=== PATIENT | female | born 1990 | race Two or more races ===

== ENCOUNTER 2025-04-03 13:41 | Emergency (ER) | payer SELFPAY ==
[~2025-04-03] VITALS: Ht 177.8 cm; Wt 102.1 kg
[2025-04-03] MEDS ORDERED: HYDROMORPHONE 1 MG/1 ML DISP.SYRIN ONE ×2 (15:32→17:12)
[2025-04-03] MEDS ORDERED: ONDANSETRON 4 MG/2 ML VIAL ONE ×2 (15:32→17:12)
[2025-04-03 15:36] LABS: PLATELET COUNT (AUTO) 220 K/uL (179-408); RED BLOOD CELL COUNT(AUTO) 4.24 MIL/uL (3.63-4.92); RED CELL DISTRIBUTION WIDTH 22.4 % (12.3-17.7); WHITE BLOOD COUNT (AUTO) 4.2 K/uL (3.8-11.8)
[2025-04-03] MEDS: IV NS 1000 ML 1,000 ML IV ONE (15:38)
[2025-04-03] MEDS: HYDROMORPHONE 1 MG/1 ML DISP.SYRIN IV ONE ×2 (15:39→17:16)
[2025-04-03] MEDS: ONDANSETRON 4 MG/2 ML VIAL IV ONE ×2 (15:39→17:16)
[2025-04-03] MEDS ORDERED: diphenhydrAMINE 50 MG/1 ML VIAL ONE ×2 (15:41→17:20)
[2025-04-03] MEDS: diphenhydrAMINE 50 MG/1 ML VIAL IV ONE ×2 (15:43→17:23)
[2025-04-03 15:46] LABS: CREATININE 0.6 mg/dL (0.6-1.3); SODIUM SERUM 142.0 mmol/L (136-145); UREA NITROGEN, BLOOD 4.0 mg/dL (7-18)
[2025-04-03 16:18] LABS: IRON, SERUM 23 ug/dL (50-175)
[2025-04-03] MEDS ORDERED: SOD FERRIC GLUC COMPLX/SUCROSE 62.5 MG/5 ML AMPUL IV ONE (17:24)
[2025-04-03] MEDS: SOD FERRIC GLUC COMPLX/SUCROSE 125 MG in IV NORMAL SALINE 100 ML IV SCH (17:34)
[2025-04-03 18:21] VITALS: BP 128/86
[2025-04-03] MEDS ORDERED: FERR325T23 PO (18:58)
[2025-04-03] MEDS ORDERED: OXYC-128 PO (18:58)
[2025-04-03] MEDS ORDERED: [UNRECOGNIZED DRUG - CODE] PO (19:01)
[2025-04-03 19:11] VITALS: BP 128/86; TEMP 98.7; O2SAT 100
[2025-04-05] MEDS ORDERED: OXYC-128 PO (17:18)
[2025-04-05] MEDS ORDERED: [UNRECOGNIZED DRUG - CODE] PO (17:18)
== END 2025-04-03 19:11 | disposition home or self-care (01) ==
LOC: ER 13:55
DX: S02.5XXA Fracture of tooth (traumatic), initial encounter for closed fracture (principal); D50.9 Iron deficiency anemia, unspecified; R10.84 Generalized abdominal pain; Z88.5 Allergy status to narcotic agent; V89.0XXA Person injured in unspecified motor-vehicle accident, nontraffic, initial encounter; Y93.89 Activity, other specified; Y92.410 Unspecified street and highway as the place of occurrence of the external cause; Y99.9 Unspecified external cause status
CPT/HCPCS: 99284; 96365; 96375; 96361; 80048; 83550; 85025; 36415; 96376; J1200 ×2; J2916; J2405 ×2; J1171 ×2; J7040 ×2; 70030-TC; A4606; A4663

== ENCOUNTER 2025-04-04 10:35 | Emergency (ER) | payer SELFPAY ==
[~2025-04-04] VITALS: Ht 177.8 cm; Wt 61.2 kg
[2025-04-04 10:35] VITALS: BP 129/84
[~2025-04-04 10:35] MED LIST: FERR325T23 PO; OXYC-128 PO; [UNRECOGNIZED DRUG - CODE] PO
[2025-04-04 13:58] VITALS: BP 120/84; TEMP 207.9; O2SAT 97
[2025-04-05] MEDS ORDERED: [UNRECOGNIZED DRUG - CODE] PO (17:18)
[2025-04-05] MEDS ORDERED: OXYC-128 PO (17:18)
== END 2025-04-04 13:45 | disposition home or self-care (01) ==
LOC: ER 10:35
DX: D57.1 Sickle-cell disease without crisis (principal); D50.9 Iron deficiency anemia, unspecified; Z79.899 Other long term (current) drug therapy; Z88.5 Allergy status to narcotic agent
CPT/HCPCS: A4606; A4663